=== PATIENT | female | born 1940 | race Caucasian/White ===

== ENCOUNTER → 2016-08-26 | Outpatient (CLI) | payer MEDICARE, BC | LOC: LAB 08:36 | DX: R10.31 Right lower quadrant pain (principal); K80.80 Other cholelithiasis without obstruction | CPT/HCPCS: Q9967 ==

== ENCOUNTER → 2017-07-04 | Outpatient (CLI) | payer MEDICARE, BC | LOC: MAMMO 14:18 | DX: Z12.31 Encounter for screening mammogram for malignant neoplasm of breast (principal) | CPT/HCPCS: G0202 ==

== ENCOUNTER → 2018-06-13 | Day surgery (SDC) | payer MEDICARE, BC | LOC: MSO 11:15 | DX: Z12.11 Encounter for screening for malignant neoplasm of colon (principal); Z86.010 Personal history of colon polyps; K57.30 Diverticulosis of large intestine without perforation or abscess without bleeding; I10 Essential (primary) hypertension; Z79.899 Other long term (current) drug therapy; M10.9 Gout, unspecified; K21.9 Gastro-esophageal reflux disease without esophagitis; E11.9 Type 2 diabetes mellitus without complications; Z79.84 Long term (current) use of oral hypoglycemic drugs | CPT/HCPCS: 00812; J2704; J7030 ==

== ENCOUNTER → 2018-11-13 | Outpatient (CLI) | payer MEDICARE, BC | LOC: RAD 10:29 → MAMMO 11:30 → RAD 11:30 | DX: Z13.820 Encounter for screening for osteoporosis (principal); Z78.0 Asymptomatic menopausal state ==

== ENCOUNTER → 2018-11-13 | Outpatient (CLI) | payer MEDICARE, BC | LOC: MAMMO 10:27 | DX: Z12.31 Encounter for screening mammogram for malignant neoplasm of breast (principal) ==

== ENCOUNTER → 2019-04-23 | Outpatient (CLI) | payer MEDICARE, BC ==
[2019-04-23 14:36] LABS: EOS # 0.1 (0.04-0.40); EOS % 1.5 % (1.0-5.0); HEMATOCRIT 41.7 % (37.0-47.0); HEMOGLOBIN 13.8 g/dL (12.5-16.0); LYMPH# 2.6 (1.50-4.00); MEAN CELL VOLUME 93 fl (78-100); MEAN CORPUSCULAR HEMOGLOBIN 31 pg (27-31); MEAN CORPUSCULAR HGB CONC 33 g/dL (33-37); MEAN PLATELET VOLUME 10.3 fl (7.4-10.4); MONO # 0.8 (0.20-0.80); NEU # 3.7 (1.40-6.50); PLATELET COUNT 249 K/mm3 (130-400); RED BLOOD COUNT 4.49 M/mm3 (4.10-5.30); RED CELL DISTRIBUTION WIDTH 12.8 % (11.5-14.5); WHITE BLOOD COUNT 7.3 K/mm3 (4.8-10.8)
[2019-04-23 14:45] LABS: POTASSIUM 4.2 mmol/L (3.5-5.1)
[2019-04-23 14:46] LABS: ALBUMIN 4.4 g/dL (3.4-4.8)
[2019-04-23 14:47] LABS: CALCIUM 10.2 mg/dL (8.3-10.5)
[2019-04-23 14:48] LABS: TOTAL PROTEIN 7.3 g/dL (6.2-8.1)
[2019-04-23 14:50] LABS: TOTAL BILIRUBIN 0.4 mg/dL (0.2-1.2)
== END ==
LOC: LAB 14:21
PROVIDERS: Family Medicine
DX: I10 Essential (primary) hypertension (principal); E78.5 Hyperlipidemia, unspecified; E11.9 Type 2 diabetes mellitus without complications; E55.9 Vitamin D deficiency, unspecified; M10.9 Gout, unspecified

== ENCOUNTER → 2019-07-10 | Outpatient (CLI) | payer MEDICARE, BC | LOC: RAD 14:37 | DX: J98.6 Disorders of diaphragm (principal) ==

== ENCOUNTER → 2020-03-06 | Outpatient (CLI) | payer MEDICARE, BC | LOC: LAB 11:50 | DX: E11.9 Type 2 diabetes mellitus without complications (principal) ==

== ENCOUNTER → 2020-08-21 | Outpatient (CLI) | payer MEDICARE, BC ==
[2020-08-21 14:47] LABS: URINE APPEARANCE CLEAR; URINE BILIRUBIN NEGATIVE (NEGATIVE); URINE BLOOD NEGATIVE (NEGATIVE); URINE COLOR YELLOW; URINE GLUCOSE NEGATIVE (NEGATIVE); URINE KETONE NEGATIVE (NEGATIVE); URINE LEUKOCYTE ESTERASE TRACE (NEGATIVE); URINE NITRATE NEGATIVE (NEGATIVE); URINE PROTEIN(semi-quant) 1+ mg/dL (NEGATIVE); URINE UROBILINOGEN NORMAL (NORMAL)
[2020-08-21 14:48] LABS: URINE MUCUS PRESENT (NOT PRESENT)
== END ==
LOC: LAB 14:23
PROVIDERS: Family Medicine
DX: R10.9 Unspecified abdominal pain (principal)

== ENCOUNTER → 2020-08-25 | Outpatient (CLI) | payer MEDICARE, BC | LOC: MAMMO 14:11 | DX: Z12.31 Encounter for screening mammogram for malignant neoplasm of breast (principal) ==

== ENCOUNTER → 2020-10-12 | Outpatient (CLI) | payer MEDICARE, BC ==
[~2020-10-12] MED LIST: AMLODIPINE BES2.5 MG PO; APRESOLINE 25MG25 MG PO; BACTRIM DS TAB1 EACH PO; BYSTOLIC10 MG PO; BYSTOLIC5 MG PO; CEPHALEXIN500 M1 PO; CIPRO 500MG TA500 MG PO; CIPRO500 M1 PO; CLONIDINE HYDR0.1 MG PO; CLONIDINE HYDR0.2 MG PO; DITROPAN 5MG TAB5 MG PO; GLUCOPHAGE PO; IRBESARTAN150 M1 PO; LANSOPRAZOLE30 M2 PO; OMEPRAZOLE40 MG PO; ZYLOPRIM 100MG100 MG PO
== END ==
LOC: LAB 10:01
DX: Z01.812 Encounter for preprocedural laboratory examination (principal); Z20.822 Contact with and (suspected) exposure to COVID-19

== ENCOUNTER → 2020-10-15 | Day surgery (SDC) | payer MEDICARE, BC | LOC: MSO 07:23 | DX: K21.9 Gastro-esophageal reflux disease without esophagitis (principal); K29.70 Gastritis, unspecified, without bleeding; K59.00 Constipation, unspecified; E11.9 Type 2 diabetes mellitus without complications; E78.00 Pure hypercholesterolemia, unspecified; I10 Essential (primary) hypertension; Z86.010 Personal history of colon polyps; Z79.899 Other long term (current) drug therapy; Z88.0 Allergy status to penicillin; Z79.84 Long term (current) use of oral hypoglycemic drugs; Z90.89 Acquired absence of other organs; Z90.710 Acquired absence of both cervix and uterus; Z20.822 Contact with and (suspected) exposure to COVID-19 | CPT/HCPCS: 00813; J2704; J7120 ==

== ENCOUNTER 2020-10-18 08:01 | Emergency (ER) | payer MEDICARE, BC ==
[2020-10-18] MEDS ORDERED: IRBESARTAN150 M1 PO (09:13)
[2020-10-18 09:14] LABS: BASO # 0.1 (0.02-0.10); EOS # 0.3 (0.04-0.40); EOS % 3.8 % (1.0-5.0); HEMATOCRIT 39.8 % (37.0-47.0); HEMOGLOBIN 13.1 g/dL (12.5-16.0); LYMPH# 3.1 (1.50-4.00); MEAN CELL VOLUME 94 fl (78-100); MEAN CORPUSCULAR HEMOGLOBIN 31 pg (27-31); MEAN CORPUSCULAR HGB CONC 33 g/dL (33-37); MEAN PLATELET VOLUME 11.1 fl (7.4-10.4); MONO # 0.7 (0.20-0.80); PLATELET COUNT 257 K/mm3 (130-400); RED BLOOD COUNT 4.25 M/mm3 (4.10-5.30); RED CELL DISTRIBUTION WIDTH 12.8 % (11.5-14.5); WHITE BLOOD COUNT 7.1 K/mm3 (4.8-10.8)
[2020-10-18] MEDS ORDERED: DITROPAN 5MG TAB5 MG PO (09:14)
[2020-10-18] MEDS ORDERED: BYSTOLIC5 MG PO (09:14)
[2020-10-18] MEDS ORDERED: GLUCOPHAGE PO ×2 (09:15→09:16)
[2020-10-18] MEDS ORDERED: ZYLOPRIM 100MG100 MG PO (09:15)
[2020-10-18] MEDS ORDERED: OMEPRAZOLE40 MG PO (09:17)
[2020-10-18 09:25] LABS: CALCIUM 9.7 mg/dL (8.3-10.5)
[2020-10-18 09:32] LABS: PROTHROMBIN TIME 9.4 SECONDS (9.0-12.0)
[2020-10-18 13:20] VITALS: BP 164/93
[2020-10-19] MEDS ORDERED: CEPHALEXIN500 M1 PO (05:19)
== END 2020-10-18 13:45 | disposition home or self-care (01) ==
LOC: ED 08:43
PROVIDERS: Family Medicine
DX: R04.0 Epistaxis (principal); E11.9 Type 2 diabetes mellitus without complications; I10 Essential (primary) hypertension; Z79.84 Long term (current) use of oral hypoglycemic drugs
CPT/HCPCS: J0360

== ENCOUNTER 2020-10-19 04:25 | Emergency (ER) | payer MEDICARE, BC ==
[~2020-10-19 04:25] MED LIST changes: -AMLODIPINE BES2.5 MG PO; -APRESOLINE 25MG25 MG PO; -BACTRIM DS TAB1 EACH PO; -BYSTOLIC10 MG PO; -CEPHALEXIN500 M1 PO; -CIPRO 500MG TA500 MG PO; -CIPRO500 M1 PO; -CLONIDINE HYDR0.1 MG PO; -CLONIDINE HYDR0.2 MG PO; -LANSOPRAZOLE30 M2 PO
[2020-10-19 05:14] VITALS: BP 146/83
[2020-10-19] MEDS ORDERED: CEPHALEXIN500 M1 PO (05:19)
[2020-10-20] MEDS ORDERED: BYSTOLIC10 MG PO (02:19)
== END 2020-10-19 05:42 | disposition home or self-care (01) ==
LOC: ED 04:25
DX: R04.0 Epistaxis (principal); I10 Essential (primary) hypertension; E11.9 Type 2 diabetes mellitus without complications; M10.9 Gout, unspecified; Z79.84 Long term (current) use of oral hypoglycemic drugs

== ENCOUNTER 2020-10-19 06:28 | Emergency (ER) | payer MEDICARE, BC ==
[~2020-10-19 06:28] MED LIST changes: +CEPHALEXIN500 M1 PO
[2020-10-19 09:06] VITALS: BP 164/77
[2020-10-20] MEDS ORDERED: BYSTOLIC10 MG PO (02:19)
== END 2020-10-19 09:13 | disposition home or self-care (01) ==
LOC: ED 06:28
DX: R04.0 Epistaxis (principal); Z79.84 Long term (current) use of oral hypoglycemic drugs
CPT/HCPCS: J0360

== ENCOUNTER 2020-10-20 01:58 | Emergency (ER) | payer MEDICARE, BC ==
[2020-10-20] MEDS ORDERED: BYSTOLIC10 MG PO (02:19)
[2020-10-20 02:49] LABS: HEMATOCRIT 34.2 % (37.0-47.0); HEMOGLOBIN 11.4 g/dL (12.5-16.0)
[2020-10-20 06:42] VITALS: BP 150/90
== END 2020-10-20 07:16 | disposition home or self-care (01) ==
LOC: ED 01:58
PROVIDERS: Nurse Practitioner
DX: R04.0 Epistaxis (principal); I10 Essential (primary) hypertension; Z88.0 Allergy status to penicillin; Z88.8 Allergy status to other drugs, medicaments and biological substances; Z79.84 Long term (current) use of oral hypoglycemic drugs

== ENCOUNTER → 2020-11-09 | Outpatient (CLI) | payer MEDICARE, BC ==
[2020-10-20 06:42] VITALS: BP 150/90
[~2020-11-09] MED LIST changes: +AMLODIPINE BES2.5 MG PO; +APRESOLINE 25MG25 MG PO; +BACTRIM DS TAB1 EACH PO; +BYSTOLIC10 MG PO; +CIPRO 500MG TA500 MG PO; +CIPRO500 M1 PO; +CLONIDINE HYDR0.1 MG PO; +CLONIDINE HYDR0.2 MG PO; +LANSOPRAZOLE30 M2 PO
== END ==
LOC: RAD 12:43
DX: F41.8 Other specified anxiety disorders (principal); R41.3 Other amnesia

== ENCOUNTER → 2020-11-25 | Outpatient (CLI) | payer MEDICARE, BC ==
[2020-11-25 11:55] LABS: BASO # 0.1 (0.02-0.10); EOS # 0.2 (0.04-0.40); EOS % 3.3 % (1.0-5.0); HEMATOCRIT 40.1 % (37.0-47.0); HEMOGLOBIN 12.8 g/dL (12.5-16.0); MEAN CELL VOLUME 94 fl (78-100); MEAN CORPUSCULAR HEMOGLOBIN 30 pg (27-31); MEAN CORPUSCULAR HGB CONC 32 g/dL (33-37); MEAN PLATELET VOLUME 10.3 fl (7.4-10.4); MONO # 0.6 (0.20-0.80); NEU # 3.8 (1.40-6.50); PLATELET COUNT 289 K/mm3 (130-400); RED BLOOD COUNT 4.25 M/mm3 (4.10-5.30); RED CELL DISTRIBUTION WIDTH 12.6 % (11.5-14.5); WHITE BLOOD COUNT 6.7 K/mm3 (4.8-10.8)
== END ==
LOC: LAB 11:42
PROVIDERS: Family Medicine
DX: D64.9 Anemia, unspecified (principal)

== ENCOUNTER 2020-12-03 06:11 | Emergency (ER) | payer MEDICARE, BC ==
[~2020-12-03 06:11] MED LIST changes: -AMLODIPINE BES2.5 MG PO; -APRESOLINE 25MG25 MG PO; -BACTRIM DS TAB1 EACH PO; -CIPRO 500MG TA500 MG PO; -CIPRO500 M1 PO; -CLONIDINE HYDR0.1 MG PO; -CLONIDINE HYDR0.2 MG PO; -LANSOPRAZOLE30 M2 PO
[2020-12-03] MEDS ORDERED: CLONIDINE HYDR0.1 MG PO (06:24)
[2020-12-03] MEDS ORDERED: LANSOPRAZOLE30 M2 PO (06:25)
[2020-12-03 06:59] LABS: BASO # 0.1 (0.02-0.10); EOS # 0.2 (0.04-0.40); EOS % 1.7 % (1.0-5.0); HEMOGLOBIN 13.2 g/dL (12.5-16.0); LYMPH# 1.8 (1.50-4.00); MEAN CELL VOLUME 91 fl (78-100); MEAN CORPUSCULAR HEMOGLOBIN 31 pg (27-31); MEAN CORPUSCULAR HGB CONC 34 g/dL (33-37); MEAN PLATELET VOLUME 10.5 fl (7.4-10.4); MONO # 0.7 (0.20-0.80); NEU # 6.2 (1.40-6.50); PLATELET COUNT 258 K/mm3 (130-400); RED BLOOD COUNT 4.27 M/mm3 (4.10-5.30); RED CELL DISTRIBUTION WIDTH 12.4 % (11.5-14.5); WHITE BLOOD COUNT 8.9 K/mm3 (4.8-10.8)
[2020-12-03 07:14] LABS: ALBUMIN 4.2 g/dL (3.4-4.8)
[2020-12-03 07:15] LABS: CALCIUM 9.5 mg/dL (8.3-10.5)
[2020-12-03 07:18] LABS: TOTAL BILIRUBIN 0.4 mg/dL (0.2-1.2)
[2020-12-03 07:20] LABS: URINE APPEARANCE CLEAR; URINE BILIRUBIN NEGATIVE (NEGATIVE); URINE BLOOD NEGATIVE (NEGATIVE); URINE COLOR YELLOW; URINE GLUCOSE NEGATIVE (NEGATIVE); URINE KETONE NEGATIVE (NEGATIVE); URINE LEUKOCYTE ESTERASE TRACE (NEGATIVE); URINE NITRATE NEGATIVE (NEGATIVE); URINE PROTEIN(semi-quant) 2+ mg/dL (NEGATIVE); URINE UROBILINOGEN NORMAL (NORMAL)
[2020-12-03 07:21] LABS: URINE MUCUS PRESENT (NOT PRESENT)
[2020-12-03] MEDS ORDERED: CIPRO500 M1 PO (08:46)
[2020-12-03] MEDS ORDERED: BYSTOLIC10 MG PO (08:55)
[2020-12-03] MEDS ORDERED: ZYLOPRIM 100MG100 MG PO (08:55)
[2020-12-03 09:13] VITALS: BP 164/91
== END 2020-12-03 09:03 | disposition home or self-care (01) ==
LOC: ED 06:11
PROVIDERS: Physician Assistant
DX: I10 Essential (primary) hypertension (principal); N30.00 Acute cystitis without hematuria; E11.9 Type 2 diabetes mellitus without complications; M10.9 Gout, unspecified; Z88.0 Allergy status to penicillin; Z88.8 Allergy status to other drugs, medicaments and biological substances; Z79.84 Long term (current) use of oral hypoglycemic drugs; Z79.899 Other long term (current) drug therapy

== ENCOUNTER 2020-12-06 01:44 | Emergency (ER) | payer MEDICARE, BC ==
[~2020-12-06 01:44] MED LIST changes: +CIPRO500 M1 PO; +CLONIDINE HYDR0.1 MG PO; +LANSOPRAZOLE30 M2 PO
[2020-12-06] MEDS ORDERED: CIPRO 500MG TA500 MG PO (01:50)
[2020-12-06 04:53] VITALS: BP 152/74
== END 2020-12-06 04:54 | disposition home or self-care (01) ==
LOC: ED 01:44
DX: I10 Essential (primary) hypertension (principal); E11.9 Type 2 diabetes mellitus without complications; M10.9 Gout, unspecified; Z88.0 Allergy status to penicillin; Z88.1 Allergy status to other antibiotic agents; Z88.8 Allergy status to other drugs, medicaments and biological substances; Z79.84 Long term (current) use of oral hypoglycemic drugs; Z79.899 Other long term (current) drug therapy

== ENCOUNTER → 2020-12-10 | Outpatient (CLI) | payer MEDICARE, BC ==
[2020-12-06 04:53] VITALS: BP 152/74
[~2020-12-10] MED LIST changes: +AMLODIPINE BES2.5 MG PO; +APRESOLINE 25MG25 MG PO; +BACTRIM DS TAB1 EACH PO; +CIPRO 500MG TA500 MG PO; +CLONIDINE HYDR0.2 MG PO
== END ==
LOC: RAD 13:52
DX: K21.9 Gastro-esophageal reflux disease without esophagitis (principal)

== ENCOUNTER 2020-12-24 09:01 | Emergency (ER) | payer MEDICARE, BC ==
[~2020-12-24 09:01] MED LIST changes: -AMLODIPINE BES2.5 MG PO; -APRESOLINE 25MG25 MG PO; -BACTRIM DS TAB1 EACH PO; -CLONIDINE HYDR0.2 MG PO
[2020-12-24] MEDS ORDERED: APRESOLINE 25MG25 MG PO (09:20)
[2020-12-24] MEDS ORDERED: AMLODIPINE BES2.5 MG PO (09:20)
[2020-12-24] MEDS ORDERED: CLONIDINE HYDR0.2 MG PO (09:21)
[2020-12-24] MEDS ORDERED: BYSTOLIC10 MG PO (09:48)
[2020-12-24 10:17] LABS: URINE APPEARANCE CLEAR; URINE BILIRUBIN NEGATIVE (NEGATIVE); URINE BLOOD NEGATIVE (NEGATIVE); URINE COLOR YELLOW; URINE GLUCOSE NEGATIVE (NEGATIVE); URINE KETONE NEGATIVE (NEGATIVE); URINE LEUKOCYTE ESTERASE 1+ (NEGATIVE); URINE MUCUS PRESENT (NOT PRESENT); URINE NITRATE NEGATIVE (NEGATIVE); URINE PROTEIN(semi-quant) 1+ mg/dL (NEGATIVE); URINE UROBILINOGEN NORMAL (NORMAL)
[2020-12-24] MEDS ORDERED: BACTRIM DS TAB1 EACH PO (10:32)
[2020-12-24 10:54] LABS: BASO # 0.05 (0.02-0.10); EOS # 0.25 (0.04-0.40); HEMATOCRIT 38.9 % (37.0-47.0); LYMPH# 1.96 (1.50-4.00); MEAN CELL VOLUME 91 fl (78-100); MEAN CORPUSCULAR HEMOGLOBIN 30 pg (27-31); MEAN CORPUSCULAR HGB CONC 33 g/dL (33-37); MEAN PLATELET VOLUME 10.6 fl (7.4-10.4); MONO # 0.66 (0.20-0.80); NEU # 5.45 (1.40-6.50); PLATELET COUNT 222 K/mm3 (130-400); RED CELL DISTRIBUTION WIDTH 12.2 % (11.5-14.5); WHITE BLOOD COUNT 8.4 K/mm3 (4.8-10.8)
[2020-12-24 11:04] LABS: POTASSIUM 4.2 mmol/L (3.5-5.1); SODIUM 139 mmol/L (136-145)
[2020-12-24 11:05] LABS: CALCIUM 9.6 mg/dL (8.3-10.5)
[2020-12-24 11:06] LABS: GLUCOSE 169 mg/dL (65-105)
[2020-12-24 11:07] LABS: CARBON DIOXIDE 22 mmol/L (23-31)
[2020-12-24 11:22] LABS: TROPONIN-I < 0.03 ng/mL (<0.030)
[2020-12-24 13:18] VITALS: BP 168/79
[2020-12-24 22:47] LABS: CORTISOL, AM (0800) 13 ug/dL (3-20)
[2020-12-29 13:26] LABS: RENIN,PLASMA <0.6 ng/mL/h (())
[2020-12-29 15:47] LABS: ALDOSTERONE, SERUM <4.0 ng/dL (<=21)
== END 2020-12-24 11:50 | disposition home or self-care (01) ==
LOC: ED 09:01
PROVIDERS: Nurse Practitioner Family
DX: I10 Essential (primary) hypertension (principal); N39.0 Urinary tract infection, site not specified; F41.9 Anxiety disorder, unspecified; E11.9 Type 2 diabetes mellitus without complications; M10.9 Gout, unspecified; Z79.84 Long term (current) use of oral hypoglycemic drugs; Z79.899 Other long term (current) drug therapy

== ENCOUNTER → 2020-12-29 | Outpatient (CLI) | payer MEDICARE, BC ==
[2020-12-24 13:18] VITALS: BP 168/79
[~2020-12-29] MED LIST changes: +AMLODIPINE BES2.5 MG PO; +APRESOLINE 25MG25 MG PO; +BACTRIM DS TAB1 EACH PO; +CLONIDINE HYDR0.2 MG PO
[2020-12-29 19:18] LABS: URINE APPEARANCE CLEAR; URINE BILIRUBIN NEGATIVE (NEGATIVE); URINE BLOOD NEGATIVE (NEGATIVE); URINE COLOR YELLOW; URINE GLUCOSE NEGATIVE (NEGATIVE); URINE KETONE NEGATIVE (NEGATIVE); URINE LEUKOCYTE ESTERASE NEGATIVE (NEGATIVE); URINE NITRATE NEGATIVE (NEGATIVE); URINE PROTEIN(semi-quant) NEGATIVE (NEGATIVE); URINE UROBILINOGEN NORMAL (NORMAL); URINE WBC 0-1 /hpf (0-3)
== END ==
LOC: LAB 17:00
PROVIDERS: Family Medicine
DX: R30.9 Painful micturition, unspecified (principal)

== ENCOUNTER → 2021-01-26 | Outpatient (CLI) | payer MEDICARE, BC ==
[2021-01-26 23:47] LABS: MICROALBUMIN RANDOM 1.1 mg/dL (0.0-1.7)
[2021-02-02 21:56] LABS: CORTISOL,URINE 24 mcg/24 h (3.5-45)
== END ==
LOC: LAB 15:23
PROVIDERS: Internal Medicine Interventional Cardiology
DX: I10 Essential (primary) hypertension (principal)

== ENCOUNTER 2021-02-11 08:11 | Emergency (ER) | payer MEDICARE, BC ==
[2021-02-11 09:21] LABS: BASO # 0.04 (0.02-0.10); EOS # 0.18 (0.04-0.40); EOS % 2.4 % (1.0-5.0); HEMATOCRIT 36.7 % (37.0-47.0); HEMOGLOBIN 12.3 g/dL (12.5-16.0); MEAN CELL VOLUME 91 fl (78-100); MEAN CORPUSCULAR HEMOGLOBIN 30 pg (27-31); MEAN CORPUSCULAR HGB CONC 34 g/dL (33-37); MEAN PLATELET VOLUME 10.3 fl (7.4-10.4); MONO # 0.66 (0.20-0.80); NEU # 4.74 (1.40-6.50); PLATELET COUNT 220 K/mm3 (130-400); RED BLOOD COUNT 4.05 M/mm3 (4.10-5.30); RED CELL DISTRIBUTION WIDTH 12.7 % (11.5-14.5); WHITE BLOOD COUNT 7.6 K/mm3 (4.8-10.8)
[2021-02-11 09:24] LABS: URINE APPEARANCE HAZY; URINE BILIRUBIN NEGATIVE (NEGATIVE); URINE BLOOD TRACE (NEGATIVE); URINE COLOR YELLOW; URINE GLUCOSE NEGATIVE (NEGATIVE); URINE KETONE NEGATIVE (NEGATIVE); URINE LEUKOCYTE ESTERASE TRACE (NEGATIVE); URINE NITRATE NEGATIVE (NEGATIVE); URINE PROTEIN(semi-quant) 1+ mg/dL (NEGATIVE); URINE UROBILINOGEN NORMAL (NORMAL)
[2021-02-11 09:25] LABS: URINE MUCUS PRESENT (NOT PRESENT)
[2021-02-11 09:32] LABS: ALBUMIN 3.9 g/dL (3.4-4.8)
[2021-02-11 09:33] LABS: POTASSIUM 4.9 mmol/L (3.5-5.1); SODIUM 138 mmol/L (136-145)
[2021-02-11 09:34] LABS: CALCIUM 9.5 mg/dL (8.3-10.5)
[2021-02-11 09:35] LABS: GLUCOSE 195 mg/dL (65-105); TOTAL PROTEIN 6.6 g/dL (6.2-8.1)
[2021-02-11 09:36] LABS: CARBON DIOXIDE 24 mmol/L (23-31)
[2021-02-11 09:37] LABS: TOTAL BILIRUBIN 0.3 mg/dL (0.2-1.2)
[2021-02-11 09:40] LABS: AST-SGOT 16 U/L (5-34)
[2021-02-11 09:41] LABS: ALT/SGPT 27 U/L (0-55)
[2021-02-11 10:15] VITALS: BP 162/80
[2021-02-11 10:22] LABS: TROPONIN-I < 0.03 ng/mL (<0.030)
== END 2021-02-11 10:16 | disposition home or self-care (01) ==
LOC: ED 08:11
PROVIDERS: Nurse Practitioner
DX: N39.0 Urinary tract infection, site not specified (principal); I10 Essential (primary) hypertension; R04.0 Epistaxis; F41.9 Anxiety disorder, unspecified; E11.9 Type 2 diabetes mellitus without complications; E66.9 Obesity, unspecified; M10.9 Gout, unspecified; E78.5 Hyperlipidemia, unspecified; Z79.84 Long term (current) use of oral hypoglycemic drugs; Z79.899 Other long term (current) drug therapy

== ENCOUNTER → 2021-06-14 | Outpatient (CLI) | payer MEDICARE, BC ==
[2021-06-14 15:31] LABS: URINE APPEARANCE CLEAR; URINE BILIRUBIN NEGATIVE (NEGATIVE); URINE BLOOD NEGATIVE (NEGATIVE); URINE COLOR YELLOW; URINE KETONE NEGATIVE (NEGATIVE); URINE LEUKOCYTE ESTERASE TRACE (NEGATIVE); URINE MUCUS PRESENT (NOT PRESENT); URINE NITRATE NEGATIVE (NEGATIVE); URINE PROTEIN(semi-quant) NEGATIVE (NEGATIVE); URINE UROBILINOGEN NORMAL (NORMAL)
== END ==
LOC: LAB 14:58
PROVIDERS: Family Medicine
DX: E11.9 Type 2 diabetes mellitus without complications (principal); R30.9 Painful micturition, unspecified

== ENCOUNTER → 2021-08-18 | Outpatient (CLI) | payer MEDICARE, BC ==
[2021-08-18 12:45] LABS: BASO # 0.04 K/mm3 (0.02-0.10); EOS # 0.17 K/mm3 (0.04-0.40); EOS % 2.6 % (1.0-5.0); HEMATOCRIT 37.9 % (37.0-47.0); HEMOGLOBIN 12.5 g/dL (12.5-16.0); LYMPH# 1.94 K/mm3 (1.50-4.00); MEAN CELL VOLUME 94 fl (78-100); MEAN CORPUSCULAR HEMOGLOBIN 31 pg (27-31); MEAN CORPUSCULAR HGB CONC 33 g/dL (33-37); MEAN PLATELET VOLUME 10.5 fl (7.4-10.4); MONO # 0.61 K/mm3 (0.20-0.80); NEU # 3.78 K/mm3 (1.40-6.50); PLATELET COUNT 281 K/mm3 (130-400); RED BLOOD COUNT 4.04 M/mm3 (4.10-5.30); RED CELL DISTRIBUTION WIDTH 12.8 % (11.5-14.5); WHITE BLOOD COUNT 6.6 K/mm3 (4.8-10.8)
[2021-08-18 13:05] LABS: URINE APPEARANCE CLEAR; URINE BILIRUBIN 2+ (NEGATIVE); URINE BLOOD NEGATIVE (NEGATIVE); URINE COLOR YELLOW; URINE KETONE 1+ (NEGATIVE); URINE LEUKOCYTE ESTERASE NEGATIVE (NEGATIVE); URINE MUCUS PRESENT (NOT PRESENT); URINE NITRATE NEGATIVE (NEGATIVE); URINE PROTEIN(semi-quant) TRACE (NEGATIVE); URINE UROBILINOGEN NORMAL (NORMAL); URINE WBC 0-1 /hpf (0-3)
== END ==
LOC: LAB 12:16
PROVIDERS: Family Medicine
DX: D64.9 Anemia, unspecified (principal); E11.9 Type 2 diabetes mellitus without complications; E03.9 Hypothyroidism, unspecified; N39.0 Urinary tract infection, site not specified

== ENCOUNTER → 2021-10-18 | Outpatient (CLI) | payer MEDICARE, BC ==
[2021-10-18 18:19] LABS: BASO # 0.05 K/mm3 (0.02-0.10); EOS # 0.22 K/mm3 (0.04-0.40); EOS % 2.7 % (1.0-5.0); HEMATOCRIT 39.7 % (37.0-47.0); HEMOGLOBIN 13.2 g/dL (12.5-16.0); LYMPH# 2.42 K/mm3 (1.50-4.00); MEAN CELL VOLUME 94 fl (78-100); MEAN CORPUSCULAR HEMOGLOBIN 31 pg (27-31); MEAN CORPUSCULAR HGB CONC 33 g/dL (33-37); MEAN PLATELET VOLUME 10.9 fl (7.4-10.4); MONO # 0.72 K/mm3 (0.20-0.80); NEU # 4.59 K/mm3 (1.40-6.50); PLATELET COUNT 321 K/mm3 (130-400); RED BLOOD COUNT 4.22 M/mm3 (4.10-5.30); RED CELL DISTRIBUTION WIDTH 12.3 % (11.5-14.5)
[2021-10-18 19:23] LABS: URINE APPEARANCE HAZY; URINE BILIRUBIN 1+ (NEGATIVE); URINE COLOR YELLOW; URINE KETONE NEGATIVE (NEGATIVE); URINE NITRATE NEGATIVE (NEGATIVE); URINE PROTEIN(semi-quant) TRACE (NEGATIVE); URINE UROBILINOGEN NORMAL (NORMAL)
[2021-10-18 19:24] LABS: URINE BLOOD NEGATIVE (NEGATIVE); URINE LEUKOCYTE ESTERASE TRACE (NEGATIVE)
[2021-10-18 19:38] LABS: POTASSIUM 4.5 mmol/L (3.5-5.1)
[2021-10-18 19:39] LABS: ALBUMIN 4.5 g/dL (3.4-4.8)
[2021-10-18 19:40] LABS: CALCIUM 10.3 mg/dL (8.3-10.5)
[2021-10-18 19:41] LABS: TOTAL PROTEIN 7.3 g/dL (6.2-8.1)
[2021-10-18 19:43] LABS: TOTAL BILIRUBIN 0.3 mg/dL (0.2-1.2)
== END ==
LOC: LAB 16:41
PROVIDERS: Family Medicine
DX: R30.9 Painful micturition, unspecified (principal); E11.9 Type 2 diabetes mellitus without complications; E55.9 Vitamin D deficiency, unspecified; D64.9 Anemia, unspecified; E78.5 Hyperlipidemia, unspecified; I10 Essential (primary) hypertension

== ENCOUNTER 2022-04-14 09:59 | Emergency (ER) | payer MEDICARE, BC ==
[2022-04-14 10:19] VITALS: BP 147/78
== END 2022-04-14 10:38 | disposition home or self-care (01) ==
LOC: ED 09:59
DX: I10 Essential (primary) hypertension (principal); Z28.310 Unvaccinated for COVID-19

== ENCOUNTER → 2022-04-25 | Outpatient (CLI) | payer MEDICARE, BC ==
[2022-04-25 15:16] LABS: BASO # 0.04 K/mm3 (0.02-0.10); EOS # 0.11 K/mm3 (0.04-0.40); EOS % 1.3 % (1.0-5.0); HEMATOCRIT 38.7 % (37.0-47.0); HEMOGLOBIN 12.8 g/dL (12.5-16.0); LYMPH# 3.11 K/mm3 (1.50-4.00); MEAN CELL VOLUME 94 fl (78-100); MEAN CORPUSCULAR HEMOGLOBIN 31 pg (27-31); MEAN CORPUSCULAR HGB CONC 33 g/dL (33-37); MEAN PLATELET VOLUME 10.4 fl (7.4-10.4); MONO # 0.65 K/mm3 (0.20-0.80); NEU # 4.44 K/mm3 (1.40-6.50); PLATELET COUNT 302 K/mm3 (130-400); RED CELL DISTRIBUTION WIDTH 12.6 % (11.5-14.5); WHITE BLOOD COUNT 8.4 K/mm3 (4.8-10.8)
[2022-04-25 15:28] LABS: POTASSIUM 4.6 mmol/L (3.5-5.1)
[2022-04-25 15:29] LABS: ALBUMIN 4.3 g/dL (3.4-4.8)
[2022-04-25 15:30] LABS: CALCIUM 9.8 mg/dL (8.3-10.5)
[2022-04-25 15:31] LABS: TOTAL PROTEIN 6.7 g/dL (6.2-8.1)
[2022-04-25 15:33] LABS: TOTAL BILIRUBIN 0.3 mg/dL (0.2-1.2)
== END ==
LOC: LAB 15:00
PROVIDERS: Family Medicine
DX: D64.9 Anemia, unspecified (principal); K21.9 Gastro-esophageal reflux disease without esophagitis; E78.5 Hyperlipidemia, unspecified; M10.9 Gout, unspecified; F41.1 Generalized anxiety disorder; E11.9 Type 2 diabetes mellitus without complications; E55.9 Vitamin D deficiency, unspecified; K64.9 Unspecified hemorrhoids; I10 Essential (primary) hypertension; N39.46 Mixed incontinence; E66.9 Obesity, unspecified; J30.2 Other seasonal allergic rhinitis

== ENCOUNTER 2022-08-24 16:25 | Emergency (ER) | payer MEDICARE, BC ==
[~2022-08-24] VITALS: Ht 172.7 cm; Wt 75.0 kg
[~2022-08-24 16:25] MED LIST changes: -CLONIDINE1 EAC2 TD; -FLUTICASON0.05 MG/AC NS; -GEMTESA75 MG PO; -NEBIVOLOL HCL5 MG PO; -NORVASC 10MG10 MG PO
[2022-08-24 17:00] LABS: BASO # 0.06 K/mm3 (0.02-0.10); EOS # 0.03 K/mm3 (0.04-0.40); EOS % 0.3 % (1.0-5.0); HEMATOCRIT 44.7 % (37.0-47.0); HEMOGLOBIN 14.9 g/dL (12.5-16.0); LYMPH# 2.23 K/mm3 (1.50-4.00); MEAN CELL VOLUME 93 fl (78-100); MEAN CORPUSCULAR HEMOGLOBIN 31 pg (27-31); MEAN CORPUSCULAR HGB CONC 33 g/dL (33-37); MEAN PLATELET VOLUME 10.4 fl (7.4-10.4); MONO # 0.72 K/mm3 (0.20-0.80); PLATELET COUNT 355 K/mm3 (130-400); RED BLOOD COUNT 4.81 M/mm3 (4.10-5.30); RED CELL DISTRIBUTION WIDTH 12.5 % (11.5-14.5)
[2022-08-24] MEDS ORDERED: NORVASC 10MG10 MG PO (17:06)
[2022-08-24] MEDS ORDERED: CLONIDINE1 EAC2 TD (17:06)
[2022-08-24] MEDS ORDERED: NEBIVOLOL HCL5 MG PO (17:07)
[2022-08-24] MEDS ORDERED: GEMTESA75 MG PO (17:08)
[2022-08-24] MEDS ORDERED: FLUTICASON0.05 MG/AC NS (17:09)
[2022-08-24 17:10] LABS: POTASSIUM 4.7 mmol/L (3.5-5.1)
[2022-08-24 17:11] LABS: CALCIUM 10.8 mg/dL (8.3-10.5)
[2022-08-24 17:12] LABS: TOTAL PROTEIN 7.8 g/dL (6.2-8.1)
[2022-08-24 17:14] LABS: TOTAL BILIRUBIN 0.5 mg/dL (0.2-1.2)
[2022-08-24 18:15] VITALS: BP 168/81
== END 2022-08-24 18:16 | disposition home or self-care (01) ==
LOC: ED 16:25
PROVIDERS: Family Medicine
DX: K80.20 Calculus of gallbladder without cholecystitis without obstruction (principal); E66.9 Obesity, unspecified; Z68.25 Body mass index [BMI] 25.0-25.9, adult
CPT/HCPCS: J7030; Q9967

== ENCOUNTER → 2022-08-24 | Outpatient (CLI) | payer MEDICARE, BC ==
[~2022-08-24] MED LIST changes: +CLONIDINE1 EAC2 TD; +FLUTICASON0.05 MG/AC NS; +GEMTESA75 MG PO; +NEBIVOLOL HCL5 MG PO; +NORVASC 10MG10 MG PO
== END ==
LOC: RAD 15:01
DX: R11.0 Nausea (principal)

== ENCOUNTER → 2023-04-14 | Outpatient (CLI) | payer MEDICARE, BC ==
[~2023-04-14] MED LIST changes: +CLONIDINE1 EAC2 TD; +FLUTICASON0.05 MG/AC NS; +GEMTESA75 MG PO; +NEBIVOLOL HCL5 MG PO; +NORVASC 10MG10 MG PO
== END ==
LOC: RAD 14:41
DX: I65.23 Occlusion and stenosis of bilateral carotid arteries (principal); I10 Essential (primary) hypertension

== ENCOUNTER → 2023-06-06 | Outpatient (CLI) | payer MEDICARE, BC ==
[2023-06-06 15:33] LABS: ALBUMIN 4.4 g/dL (3.4-4.8)
[2023-06-06 15:34] LABS: BASO # 0.04 K/mm3 (0.02-0.10); CALCIUM 10.1 mg/dL (8.3-10.5); EOS # 0.14 K/mm3 (0.04-0.40); EOS % 2.1 % (1.0-5.0); HEMATOCRIT 40.3 % (37.0-47.0); HEMOGLOBIN 13.2 g/dL (12.5-16.0); LYMPH# 2.14 K/mm3 (1.50-4.00); MEAN CELL VOLUME 94 fl (78-100); MEAN CORPUSCULAR HEMOGLOBIN 31 pg (27-31); MEAN CORPUSCULAR HGB CONC 33 g/dL (33-37); MEAN PLATELET VOLUME 10.7 fl (7.4-10.4); MONO # 0.63 K/mm3 (0.20-0.80); NEU # 3.64 K/mm3 (1.40-6.50); PLATELET COUNT 266 K/mm3 (130-400); RED CELL DISTRIBUTION WIDTH 12.4 % (11.5-14.5); WHITE BLOOD COUNT 6.6 K/mm3 (4.8-10.8)
[2023-06-06 15:37] LABS: TOTAL BILIRUBIN 0.3 mg/dL (0.2-1.2)
== END ==
LOC: LAB 14:53
PROVIDERS: Family Medicine
DX: Z00.00 Encounter for general adult medical examination without abnormal findings (principal); Z12.31 Encounter for screening mammogram for malignant neoplasm of breast; E78.5 Hyperlipidemia, unspecified; D64.9 Anemia, unspecified; I10 Essential (primary) hypertension; K21.9 Gastro-esophageal reflux disease without esophagitis; F41.1 Generalized anxiety disorder; M10.9 Gout, unspecified; K64.9 Unspecified hemorrhoids; N39.46 Mixed incontinence; E66.9 Obesity, unspecified; E11.9 Type 2 diabetes mellitus without complications; E55.9 Vitamin D deficiency, unspecified; F41.9 Anxiety disorder, unspecified; R10.13 Epigastric pain

== ENCOUNTER → 2023-07-06 | Outpatient (CLI) | payer MEDICARE, BC | LOC: RAD 12:56 | DX: K80.20 Calculus of gallbladder without cholecystitis without obstruction (principal); R91.1 Solitary pulmonary nodule; I87.8 Other specified disorders of veins; K59.00 Constipation, unspecified ==

== ENCOUNTER → 2024-03-14 | Outpatient (CLI) | payer MEDICARE, BC ==
[2024-03-14 15:17] LABS: BASO # 0.05 K/mm3 (0.02-0.10); EOS # 0.19 K/mm3 (0.04-0.40); EOS % 2.5 % (1.0-5.0); HEMATOCRIT 41.9 % (37.0-47.0); HEMOGLOBIN 13.7 g/dL (12.5-16.0); LYMPH# 2.36 K/mm3 (1.50-4.00); MEAN CELL VOLUME 95 fl (78-100); MEAN CORPUSCULAR HEMOGLOBIN 31 pg (27-31); MEAN CORPUSCULAR HGB CONC 33 g/dL (33-37); MEAN PLATELET VOLUME 10.4 fl (7.4-10.4); MONO # 0.76 K/mm3 (0.20-0.80); NEU # 4.37 K/mm3 (1.40-6.50); PLATELET COUNT 293 K/mm3 (130-400); RED BLOOD COUNT 4.41 M/mm3 (4.10-5.30); RED CELL DISTRIBUTION WIDTH 12.4 % (11.5-14.5); WHITE BLOOD COUNT 7.7 K/mm3 (4.8-10.8)
[2024-03-14 15:22] LABS: ALBUMIN 4.6 g/dL (3.4-4.8)
[2024-03-14 15:23] LABS: CALCIUM 10.4 mg/dL (8.3-10.5)
[2024-03-14 15:25] LABS: TOTAL PROTEIN 7.5 g/dL (6.2-8.1)
[2024-03-14 15:27] LABS: TOTAL BILIRUBIN 0.4 mg/dL (0.2-1.2)
[2024-03-14 15:46] LABS: PH-URINE 5.5 (5.0 - 8.0); URINE APPEARANCE CLEAR (CLEAR); URINE BILIRUBIN NEGATIVE (NEGATIVE); URINE BLOOD NEGATIVE (NEGATIVE); URINE COLOR YELLOW (YELLOW); URINE GLUCOSE NEGATIVE (NEGATIVE); URINE KETONE NEGATIVE (NEGATIVE); URINE LEUKOCYTE ESTERASE TRACE (NEGATIVE); URINE MUCUS PRESENT (NOT PRESENT); URINE NITRATE NEGATIVE (NEGATIVE); URINE PROTEIN(semi-quant) NEGATIVE (NEGATIVE)
== END ==
LOC: LAB 15:02
PROVIDERS: Nurse Practitioner
DX: R10.9 Unspecified abdominal pain (principal); R32 Unspecified urinary incontinence

== ENCOUNTER → 2024-03-18 | Outpatient (CLI) | payer MEDICARE, BC | LOC: MAMMO 13:48 | DX: Z12.31 Encounter for screening mammogram for malignant neoplasm of breast (principal); Z13.820 Encounter for screening for osteoporosis ==

== ENCOUNTER → 2024-04-05 | Outpatient (CLI) | payer MEDICARE, BC | LOC: RAD 15:17 | DX: R10.9 Unspecified abdominal pain (principal) ==

== ENCOUNTER → 2024-04-16 | Outpatient (CLI) | payer MEDICARE, BC | LOC: LAB 14:39 | DX: E11.9 Type 2 diabetes mellitus without complications (principal); E78.5 Hyperlipidemia, unspecified; E55.9 Vitamin D deficiency, unspecified ==

== ENCOUNTER → 2024-08-28 | Outpatient (CLI) | payer MEDICARE, BC | LOC: RAD 15:05 → MAMMO 15:30 | DX: Z13.820 Encounter for screening for osteoporosis (principal); Z12.39 Encounter for other screening for malignant neoplasm of breast ==